=== PATIENT | male | born 1960 | race Caucasian/White ===

== ENCOUNTER 2017-02-11 07:24 | Emergency (ER) | payer OTHER ==
[~2017-02-11] VITALS: Ht 188 cm; Wt 114.0 kg
[~2017-02-11 07:24] MED LIST: CARB200T PO; CETI10TA84 PO; ETHO250C PO; PANT1TAB48 PO
[2017-02-11 07:28] VITALS: TEMP 36.4; Ht 188 cm; Wt 114.0 kg
[2017-02-11] MEDS ORDERED: XYLOCAINE 1%/SOD BICARB 20 ML VIAL INFIL ONE (07:45)
--- NOTE | 2017-02-11 08:11 | DIAGNOSTIC IMAGING REPORT ---
RIGHT FOURTH FINGER 3 VIEWS HISTORY: fourth finger injury Right COMPARISON: None. FINDINGS: Volar dislocation at the PIP joint of the right fourth finger. Tiny ossific density adjacent to the head of the proximal phalanx of the fourth finger consistent with an avulsion fracture. Soft tissue swelling at the PIP joint. No radiopaque foreign bodies. IMPRESSION: Dislocation at the PIP joint of the right fourth finger with a tiny avulsion fracture. Electronically signed by: Peng Stephens M.D. 02/11/2017 8:09 AM Dictated Date/Time: 02/11/2017 8:00 AM
--- NOTE | 2017-02-11 08:19 | DIAGNOSTIC IMAGING REPORT ---
RIGHT FOURTH FINGER 3 VIEWS CLINICAL HISTORY: reduction fourth finger Right COMPARISON STUDY: Right fourth finger 02/11/2017. FINDINGS: Status post reduction of the dislocation at the PIP joint. The alignment is anatomic. Mild soft tissue swelling at the PIP joint. No fractures identified at this time. IMPRESSION: Status post reduction of the dislocation at the PIP joint of the right fourth finger. The alignment is anatomic. Electronically signed by: Peng Stephens M.D. 02/11/2017 8:18 AM Dictated Date/Time: 02/11/2017 8:17 AM
--- NOTE | 2017-02-11 08:30 | EMERGENCY ROOM VISIT NOTE ---
ED Visit Note First contact with patient: 07:31 CHIEF COMPLAINT: Right fourth Finger injury today HISTORY OF PRESENT ILLNESS: This 56-year-old male presents the ER with chief complaint of right fourth finger injury. The patient states that he was walking his dog on a leash this morning and the dog took off after another dog and his fingers got caught in the leash. He states his right fourth finger is now deformed looking. The patient is right-hand dominant. REVIEW OF SYSTEMS: 6 system review was performed and was negative unless stated otherwise in history of present illness. PMH: The patient is healthy; seizure disorder, nose surgery, shoulder surgery, cataract surgery SOCIAL HISTORY: Patient living with his family. The patient denies any tobacco or alcohol use. PHYSICAL EXAM: Vital Signs: Were reviewed Reviewed Nurse's notes.GEN.: 56-year- old white male appears in no acute distress. MENTAL Status: Alert and oriented 3. RIGHT FOURTH FINGER: There is an obvious deformity at the PIP joint of the finger with dorsal dislocation of the middle phalanx. The distal dislocated portion of the finger is pale but is sensate. Capillary refill is normal. EMERGENCY DEPARTMENT COURSE: The patient was evaluated. A digital block was performed using 1% buffered lidocaine. X-ray of the right fourth finger was interpreted by the radiologist and myself. DIAGNOSTICS:RIGHT FOURTH FINGER 3 VIEWS HISTORY: fourth finger injury Right COMPARISON: None. FINDINGS: Volar dislocation at the PIP joint of the right fourth finger. Tiny ossific density adjacent to the head of the proximal phalanx of the fourth finger consistent with an avulsion fracture. Soft tissue swelling at the PIP joint. No radiopaque foreign bodies. IMPRESSION: Dislocation at the PIP joint of the right fourth finger with a tiny avulsion fracture. Electronically signed by: Peng Stephens M.D. 02/11/2017 8:09 AM She was informed of the findings. Using steady traction on the proximal phalanx and middle phalanx was pulled towards the palmar aspect and then distally with complete reduction of the dislocation. A repeat x-ray was performed. DIAGNOSTICS:RIGHT FOURTH FINGER 3 VIEWS CLINICAL HISTORY: reduction fourth finger Right COMPARISON STUDY: Right fourth finger 02/11/2017. FINDINGS: Status post reduction of the dislocation at the PIP joint. The alignment is anatomic. Mild soft tissue swelling at the PIP joint. No fractures identified at this time. IMPRESSION: Status post reduction of the dislocation at the PIP joint of the right fourth finger. The alignment is anatomic. Electronically signed by: Peng Stephens M.D. 02/11/2017 8:18 AM The patient was placed in a long metal finger splint and discharged home in stable condition. DIAGNOSIS: Dislocated PIP joint of the finger DISCHARGE INSTRUCTIONS & TREATMENT: Keep the finger jono in the finger splint for 5 days except for bathing. Ice and elevation for 24 hours. Ibuprofen, 600 mg every 6 hours for pain. Current/Historical Medications Scheduled Carbamazepine (Tegretol), 400 MG PO TID Cetirizine (Zyrtec), 10 MG PO QAM Ethosuximide (Zarontin), 250 MG PO QID Pantoprazole (Protonix), 40 MG PO QAM Allergies Coded Allergies: Grass (Verified Allergy, Unknown, "SEASONAL ALLERGIES", 11/27/15) Cat Dander (Verified Adverse Reaction, Unknown, "PET DANDER", 11/27/15) Erythromycin (Verified Adverse Reaction, Unknown, DRUG INTERACTION, ) Vital Signs Date Time Temp Pulse Resp B/P (MAP) Pulse Ox O2 Delivery O2 Flow Rate FiO2 02/11/17 07:28 36.4 78 16 146/92 95 Room Air Departure Information Referrals No Doctor, Assigned (PCP) Patient Instructions [facility]
[2017-02-11 08:36] VITALS: BP 143/96; PULSE 70; O2SAT 96
== END 2017-02-11 08:37 | disposition home or self-care (01) ==
LOC: C.EDB 07:27 → C.EDA 08:37
DX: S63.274A Dislocation of unspecified interphalangeal joint of right ring finger, initial encounter (principal); X50.9XXA Other and unspecified overexertion or strenuous movements or postures, initial encounter

== ENCOUNTER 2021-04-02 07:59 | Inpatient (IN) ==
[2021-04-02] MEDS ORDERED: OPTIRAY 320 125ml IV ONE (08:17)
--- NOTE | 2021-04-02 08:29 | CT Scan Report ---
CT SCAN OF THE BRAIN WITHOUT IV CONTRAST CLINICAL HISTORY: Strokelike symptoms. COMPARISON STUDY: No priors. TECHNIQUE: Unenhanced axial CT scan of the brain is performed from the vertex to the skull base. A d ose lowering technique was utilized adhering to the principles of ALARA. CT DOSE: 729.78 mGycm FINDINGS: Brain parenchyma: The brain parenchyma is normal in appearance. There is no hemorrhage, mass effect, or evidence of acute territorial ischemia by CT criteria. Howard-white matter differentiation is preser perry. No extra-axial fluid collection is seen. Ventricles, sulci, cisterns: Normal in configuration. Intracranial vasculature: There is atherosclerotic calcification of the cavernous carotid and vertebr al arteries. Calvarium: Unremarkable. Sinuses and mastoids: The paranasal sinuses are clear. The mastoid air cells are well pneumatized. Orbits: The bony orbits are grossly intact. There are bilateral ocular lens implants. IMPRESSION: There is no hemorrhage, mass effect, or evidence of acute territorial ischemia by CT rosana cruz. ACT 112: Negative or not required by law. Electronically signed by: Moises Castellon M.D. 04/02/2021 8:28 AM
[2021-04-02 08:38] LABS: Basophils # (auto) 0.01 K/uL (0-0.2); Basophils % (auto) 0.2 %; Eosinophils # (auto) 0.57 K/uL (0-0.5); Eosinophils % (auto) 10.6 %; Hematocrit (blood only) 39.2 % (42-52); Hemoglobin 13.6 g/dL (14.0-18.0); Immature Granulocytes # (auto) 0.04 K/uL (0.00-0.02); Immature Granulocytes % (auto) 0.7 %; Lymphocytes # (auto) 1.24 K/uL (1.2-3.4); Mean Corpuscular Hemoglobin 29.7 pg (25-34); Mean Corpuscular Hgb Conc 34.7 g/dL (32-36); Mean Corpuscular Volume 85.6 fL (80-100); Mean Platelet Volume 9.2 fL (7.4-10.4); Monocytes # (auto) 0.56 K/uL (0.11-0.59); Monocytes % (auto) 10.4 %; Neutrophils # (auto) 2.98 K/uL (1.4-6.5); Neutrophils % (auto) 55.1 %; Platelet Count 257 K/uL (130-400); RDW Coefficient of Variation 13.1 % (11.5-14.5); RDW Standard Deviation 40.9 fL (36.4-46.3); Red Blood Count 4.58 M/uL (4.7-6.1)
--- NOTE | 2021-04-02 08:43 | Emergency Department Note ---
History of Present Illness General Chief complaint: Stroke/CVA Symptoms Stated complaint: LOST MOTOR CONTROL ON R SIDE Time Seen by Provider: 04/02/21 08:13 History of Present Illness Provider complaint: Right-sided weakness Onset (ago): hour(s) (0630 AM when he awoke) Location: upper extremity and right Maximum Pain Intensity: 0 Current Pain Intensity: 0 Associated symptoms: + weakness; no chest pain, no cough, no fever/chills, no headaches, no nausea/vomiting or no shortness of breath 60-year-old male presents emergency department for right-sided weakness. Pat rodrick states he woke up at 6:30 AM and felt like his right side was weak. Patient states he went to bed at 1:00 AM. The patient reports that his symptoms were present when he woke up. Patient reports no headache. No fevers. The at bedside reports that the patient's speech was slurred however that has resolved. No chest pain or difficulty breathing. Home Medications Medication Instructions Recorded Confirmed Type carbamazepine 100 mg chewable 100 mg PO HS 04/02/21 04/02/21 History tablet carbamazepine 200 mg tablet 400 mg PO TID 04/02/21 04/02/21 History cetirizine 10 mg tablet 10 mg PO QAM 04/02/21 04/02/21 History ethosuximide 250 mg capsule 250 mg PO UD 04/02/21 04/02/21 History multivitamin 1 tab PO QAM 04/02/21 04/02/21 History pantoprazole 40 mg tablet,delayed 40 mg PO DAILY@1700 04/02/21 04/02/21 History release Allergies Allergy/AdvReac Type Severity Reaction Status Date / Time grass pollen-perennial rye, Allergy Unknown "SEASONAL Verified 04/02/21 09:23 standar ALLERGIES" cat dander AdvReac Unknown "PET Verified 04/02/21 09:23 DANDER" erythromycin base AdvReac Unknown DRUG Verified 04/02/21 09:23 INTERACTION Past Med/Surg History Medical History (Updated 04/02/21 @ 15:33 by Kavon Erickson) GERD (gastroesophageal reflux disease) Seizure disorder Surgical History History of arthroscopic surgery of shoulder Family History Other Stroke Social History Smoking Status: Never smoker Hx Alcohol Use: Yes Alcohol Intake Frequency: Monthly or Less Hx Substance Use: No Preferred Language: Latvian Communication Ability: Effective Women Specialist Required: No Beliefs That Will Affect Care: None Current Living Situation: Spouse Other Information That Helps Us Care for You: No Feels Safe at Home: Yes Safety Concerns: Feels Safe At This Time Assistive Devices: None Review of Systems A total of 10 systems reviewed and were otherwise negative Physical Exam Vital Signs Vital Signs - 24 hr 04/02/21 08:03 04/02/21 08:14 04/02/21 08:30 Temperature 36.5 C Temperature Source Temporal Artery Scan Pulse Rate 76 72 Pulse Rate [Finger] 77 Pulse Rate from SpO2 Sensor 73 Respiratory Rate 16 16 21 Respiratory Effort / Characteristics Non-Labored Spontaneous Respiratory Depth Normal Respiratory Pattern Regular Blood Pressure 173/85 H 179/90 H Blood Pressure [Right Arm] 179/90 H Blood Pressure Mean 114 119 Blood Pressure Mean [Right Arm] 119 Blood Pressure Position Sitting Pulse Oximetry 94 97 96 Oxygen Delivery Method Room Air Room Air Sepsis Recent Fever Within 48 Hours No Sepsis New/Unexplained Change in Mental Status N/A Sepsis Action Taken by Nursing No Action Required 04/02/21 09:01 04/02/21 09:30 04/02/21 10:00 Temperature Temperature Source Pulse Rate 65 61 62 Pulse Rate [Finger] Pulse Rate from SpO2 Sensor 66 61 62 Respiratory Rate 16 17 16 Respiratory Effort / Characteristics Respiratory Depth Respiratory Pattern Blood Pressure 174/94 H 172/93 H 161/85 H Blood Pressure [Right Arm] Blood Pressure Mean 120 119 110 Blood Pressure Mean [Right Arm] Blood Pressure Position Pulse Oximetry 94 95 96 Oxygen Delivery Method Sepsis Recent Fever Within 48 Hours Sepsis New/Unexplained Change in Mental Status Sepsis Action Taken by Nursing Physical Exam GENERAL: He is oriented to person, place, and time. He appears well-developed and well-nourished. He does not appear distressed. HENT: Exam performed. - Head: Normocephalic and atraumatic. - Right Ear: External ear normal. No mastoid tenderness. - Left Ear: External ear normal. No mastoid tenderness. - Mouth/Throat: The oropharynx is clear and moist. No trismus in the jaw. No dental abscesses or uvula swelling. No oropharyngeal exudate or tonsillar abscesses. EYES: Conjunctivae and EOM are normal. Pupils are equal, round, and reactive to light. Right eye exhibits no discharge. Left eye exhibits no discharge. No scleral icterus. NECK: Normal range of motion. Neck supple. No JVD present. No spinous process tenderness present. No carotid bruit present. No rigidity. No tracheal deviation and normal range of motion present. No Brudzinski's sign and no Kernig's sign noted. CV: Normal rate, regular rhythm, normal heart sounds and intact distal pulses. There is no peripheral edema. Palpable radial pulses bue. PULM/CHEST: Effort normal and breath sounds normal. No respiratory distress. No stridor. He has no wheezes. He has no rales. - Chest Wall: He exhibits no tenderness. ABD: The abdomen is soft. Bowel sounds are normal. He has no distension. No mass is present. There is no tenderness. There is no rebound, no guarding, no Al's sign and no tenderness at McBurney's point. Rovsig negative. MUSC/SKEL: Normal range of motion. There is no peripheral edema, tenderness or deformity. LYMPH: No cervical adenopathy. NEURO: He is alert and oriented to person, place, and time. He has normal strength. No cranial nerve deficit or sensory deficit. Coordination and gait normal. GCS eye subscore is 4. GCS verbal subscore is 5. GCS motor subscore is 6. Cerebellar tests wnl. NIHSS: 0 SKIN: Skin is warm and dry. He is not diaphoretic. PSYCH: He has a normal mood and affect. Behavior is normal. Judgment and thought content normal. Course Course 08: The patient was evaluated in room A1. A complete history and physical exam was performed Cardiac monitoring: An order was placed for continuous cardiac monitoring. The monitor shows a rate of 80 with sinus rhythm Patient is not a TPA candidate since he woke up with his symptoms and is not sure the exact onset of symptoms. Patient's NIH stroke scale is currently 0. 0905: Vital signs stable. Labs and imaging are within normal limits. Patient has NIH stroke scale 0. Will admit the patient to the [facility] team for TIA. Aspirin given to the patient. Discussed with Dr. Lucio agrees to evaluate the patient. Administered Medications Clopidogrel Bisulfate (Clopidogrel Bisulfate 75 Mg Tab) 75 mg PO QAM [facility] Stop: 05/02/21 13:44 Last Admin: 04/02/21 14:56 Dose: 75 mg Documented by: [id number] Discontinued Medications Aspirin (Aspirin Chew 324 Mg) 324 mg PO NOW STA Stop: 04/02/21 09:07 Last Admin: 04/02/21 09:13 Dose: 324 mg Documented by: [id number] Gadobutrol (Gadobutrol 30ml Vial) 11 ml IV ONCE ONE Stop: 04/02/21 12:31 Last Admin: 04/02/21 12:31 Dose: 11 ml Documented by: [id number] Ioversol (Optiray 320 125ml) 117 ml IV ONCE ONE Stop: 04/02/21 08:18 Last Admin: 04/02/21 08:17 Dose: 117 ml Documented by: [id number] Medical Decision Making Laboratory Data Result diagrams: 04/02/21 08:28 04/02/21 08:28 Lab Results 04/02/21 04/02/21 04/02/21 Range/Units 08:28 08:28 08:28 WBC 5.40 (4.8-10.8) K/uL RBC 4.58 L (4.7-6.1) M/uL Hgb 13.6 L (14.0-18.0) g/dL Hct 39.2 L (42-52) % MCV 85.6 (80-100) fL MCH 29.7 (25-34) pg MCHC 34.7 (32-36) g/dL RDW Std Deviation 40.9 (36.4-46.3) fL RDW Coeff of Yvon 13.1 (11.5-14.5) % Plt Count 257 (130-400) K/uL MPV 9.2 (7.4-10.4) fL Immature Gran % (Auto) 0.7 % Neut % (Auto) 55.1 % Lymph % (Auto) 23.0 % [place] % (Auto) 10.4 % Eos % (Auto) 10.6 % Baso % (Auto) 0.2 % Neut # (Auto) 2.98 (1.4-6.5) K/uL Lymph # (Auto) 1.24 (1.2-3.4) K/uL [place] # (Auto) 0.56 (0.11-0.59) K/uL Eos # (Auto) 0.57 H (0-0.5) K/uL Baso # (Auto) 0.01 (0-0.2) K/uL Immature Gran # (Auto) 0.04 H (0.00-0.02) K/uL PT 10.6 (9.0-12.0) Seconds INR 1.0 (0.9-1.1) APTT 25.6 (21.0-31.0) Seconds PTT Ratio 1.0 Sodium (136-145) mmol/L Potassium (3.5-5.1) mmol/L Chloride (98-107) mmol/L Carbon Dioxide (21-32) mmol/L Anion Gap (3-11) BUN (7-18) mg/dl Creatinine (0.6-1.4) mg/dl Est Cr Clr Drug Dosing ml/min Est GFR ( Amer) ml/min Est GFR (Non-Af Amer) ml/min BUN/Creatinine Ratio (10-20) Glucose (70-99) mg/dl POC Glucose (70-99) mg/dl Calcium (8.5-10.1) mg/dl Magnesium (1.8-2.4) mg/dl Total Bilirubin (0.2-1) mg/dl AST (15-37) U/L ALT (12-78) U/L Alkaline Phosphatase (45-117) U/L Troponin I (0-0.045) ng/ml Total Protein (6.4-8.2) gm/dl Albumin (3.4-5.0) gm/dl Globulin (2.5-4.0) gm/dl Albumin/Globulin Ratio (0.9-2) COVID-19 Eval Order SARS-CoV-2 (PCR) (Negative) Blood Type A Positive Antibody Screen NEGATIVE 04/02/21 04/02/21 04/02/21 Range/Units 08:28 08:31 08:48 WBC (4.8-10.8) K/uL RBC (4.7-6.1) M/uL Hgb (14.0-18.0) g/dL Hct (42-52) % MCV (80-100) fL MCH (25-34) pg MCHC (32-36) g/dL RDW Std Deviation (36.4-46.3) fL RDW Coeff of Yvon (11.5-14.5) % Plt Count (130-400) K/uL MPV (7.4-10.4) fL Immature Gran % (Auto) % Neut % (Auto) % Lymph % (Auto) % [place] % (Auto) % Eos % (Auto) % Baso % (Auto) % Neut # (Auto) (1.4-6.5) K/uL Lymph # (Auto) (1.2-3.4) K/uL [place] # (Auto) (0.11-0.59) K/uL Eos # (Auto) (0-0.5) K/uL Baso # (Auto) (0-0.2) K/uL Immature Gran # (Auto) (0.00-0.02) K/uL PT (9.0-12.0) Seconds INR (0.9-1.1) APTT (21.0-31.0) Seconds PTT Ratio Sodium 135 L (136-145) mmol/L Potassium 4.2 (3.5-5.1) mmol/L Chloride 106 (98-107) mmol/L Carbon Dioxide 26 (21-32) mmol/L Anion Gap 3.0 (3-11) BUN 16 (7-18) mg/dl Creatinine 0.75 (0.6-1.4) mg/dl Est Cr Clr Drug Dosing 137.5 ml/min Est GFR ( Amer) 113.9 ml/min Est GFR (Non-Af Amer) 98.3 ml/min BUN/Creatinine Ratio 20.6 H (10-20) Glucose 111 H (70-99) mg/dl POC Glucose 104 H (70-99) mg/dl Calcium 8.3 L (8.5-10.1) mg/dl Magnesium 2.2 (1.8-2.4) mg/dl Total Bilirubin 0.4 (0.2-1) mg/dl AST 13 L (15-37) U/L ALT 25 (12-78) U/L Alkaline Phosphatase 68 (45-117) U/L Troponin I < 0.015 (0-0.045) ng/ml Total Protein 6.5 (6.4-8.2) gm/dl Albumin 3.3 L (3.4-5.0) gm/dl Globulin 3.2 (2.5-4.0) gm/dl Albumin/Globulin Ratio 1.0 (0.9-2) COVID-19 Eval Order Covid19 at [facility] SARS-CoV-2 (PCR) (Negative) Blood Type Antibody Screen 04/02/21 Range/Units 08:48 WBC (4.8-10.8) K/uL RBC (4.7-6.1) M/uL Hgb (14.0-18.0) g/dL Hct (42-52) % MCV (80-100) fL MCH (25-34) pg MCHC (32-36) g/dL RDW Std Deviation (36.4-46.3) fL RDW Coeff of Yvon (11.5-14.5) % Plt Count (130-400) K/uL MPV (7.4-10.4) fL Immature Gran % (Auto) % Neut % (Auto) % Lymph % (Auto) % [place] % (Auto) % Eos % (Auto) % Baso % (Auto) % Neut # (Auto) (1.4-6.5) K/uL Lymph # (Auto) (1.2-3.4) K/uL [place] # (Auto) (0.11-0.59) K/uL Eos # (Auto) (0-0.5) K/uL Baso # (Auto) (0-0.2) K/uL Immature Gran # (Auto) (0.00-0.02) K/uL PT (9.0-12.0) Seconds INR (0.9-1.1) APTT (21.0-31.0) Seconds PTT Ratio Sodium (136-145) mmol/L Potassium (3.5-5.1) mmol/L Chloride (98-107) mmol/L Carbon Dioxide (21-32) mmol/L Anion Gap (3-11) BUN (7-18) mg/dl Creatinine (0.6-1.4) mg/dl Est Cr Clr Drug Dosing ml/min Est GFR ( Amer) ml/min Est GFR (Non-Af Amer) ml/min BUN/Creatinine Ratio (10-20) Glucose (70-99) mg/dl POC Glucose (70-99) mg/dl Calcium (8.5-10.1) mg/dl Magnesium (1.8-2.4) mg/dl Total Bilirubin (0.2-1) mg/dl AST (15-37) U/L ALT (12-78) U/L Alkaline Phosphatase (45-117) U/L Troponin I (0-0.045) ng/ml Total Protein (6.4-8.2) gm/dl Albumin (3.4-5.0) gm/dl Globulin (2.5-4.0) gm/dl Albumin/Globulin Ratio (0.9-2) COVID-19 Eval Order SARS-CoV-2 (PCR) NEGATIVE (Negative) Blood Type Antibody Screen Imaging Data Radiologist's Impression: Head CT 04/02/21 08:13 CT SCAN OF THE BRAIN WITHOUT IV CONTRAST CLINICAL HISTORY: Strokelike symptoms. COMPARISON STUDY: No priors. TECHNIQUE: Unenhanced axial CT scan of the brain is performed from the vertex to the skull base. A dose lowering technique was utilized adhering to the principles of ALARA. CT DOSE: 729.78 mGycm FINDINGS: Brain parenchyma: The brain parenchyma is normal in appearance. There is no hemorrhage, mass effect, or evidence of acute territorial ischemia by CT criteria. Howard-white matter differentiation is preserved. No extra-axial fluid collection is seen. Ventricles, sulci, cisterns: Normal in configuration. Intracranial vasculature: There is atherosclerotic calcification of the cavernous carotid and vertebral arteries. Calvarium: Unremarkable. Sinuses and mastoids: The paranasal sinuses are clear. The mastoid air cells are well pneumatized. Orbits: The bony orbits are grossly intact. There are bilateral ocular lens implants. IMPRESSION: There is no hemorrhage, mass effect, or evidence of acute territorial ischemia by CT criteria. ACT 112: Negative or not required by law. Electronically signed by: Moises Castellon M.D. 04/02/2021 8:28 AM Head CTA 04/02/21 08:13 CT angio head w con, CT angio neck with con CLINICAL HISTORY: 60 years-old Male with Stroke Like Symptoms. Acute strokelike symptoms COMPARISON STUDY: Head CT of same day TECHNIQUE: Following the IV administration of 117 cc of Optiray, CT angiogram of the head and neck was performed from the aortic arch to the skull vertex. Images are reviewed in the axial, sagittal, and coronal planes. 3-D MIPS images are created and assessed. IV contrast was administered without complication. All measurements were obtained according to NASCET criteria. A dose lowering technique was utilized adhering to the principles of ALARA. CT DOSE: 1284.54 mGycm FINDINGS: Three-vessel morphology of the thoracic aortic arch. Patency of the innominate and imaged subclavian arteries. The common carotid arteries are patent. Mild atherosclerotic plaque of the carotid bulbs without significant stenosis. Calcified plaque of the cavernous and supraclinoid segments. Mild multifocal luminal narrowing of the middle cerebral arteries. The anterior cerebral arteries are patent. Cerebral venous sinuses are patent. Patency of the vertebral arteries. Calcified plaque at the origin of the right vertebral artery results in mild luminal narrowing. The basilar and posterior cerebral arteries are widely patent. No aneurysm, dissection, high-grade stenosis or arterial occlusion. Lung apices are clear. No pneumothorax. Unremarkable soft tissues. Prior bilateral lens repair. Degenerative changes of the spine. Mild polypoid mucosal thickening of the right maxillary sinus. IMPRESSION: Unremarkable CTA of the head and neck. ACT 112: Negative or not required by law. The above report was generated using voice recognition software. It may contain grammatical, syntax or spelling errors. Electronically signed by: Bhupendra Mackay M.D. 04/02/2021 8:53 AM Neck CTA 04/02/21 08:13 CT angio head w con, CT angio neck with con CLINICAL HISTORY: 60 years-old Male with Stroke Like Symptoms. Acute strokelike symptoms COMPARISON STUDY: Head CT of same day TECHNIQUE: Following the IV administration of 117 cc of Optiray, CT angiogram of the head and neck was performed from the aortic arch to the skull vertex. Images are reviewed in the axial, sagittal, and coronal planes. 3-D MIPS images are created and assessed. IV contrast was administered without complication. All measurements were obtained according to NASCET criteria. A dose lowering technique was utilized adhering to the principles of ALARA. CT DOSE: 1284.54 mGycm FINDINGS: Three-vessel morphology of the thoracic aortic arch. Patency of the innominate and imaged subclavian arteries. The common carotid arteries are patent. Mild atherosclerotic plaque of the carotid bulbs without significant stenosis. Calcified plaque of the cavernous and supraclinoid segments. Mild multifocal luminal narrowing of the middle cerebral arteries. The anterior cerebral arteries are patent. Cerebral venous sinuses are patent. Patency of the vertebral arteries. Calcified plaque at the origin of the right vertebral artery results in mild luminal narrowing. The basilar and posterior cerebral arteries are widely patent. No aneurysm, dissection, high-grade stenosis or arterial occlusion. Lung apices are clear. No pneumothorax. Unremarkable soft tissues. Prior bilateral lens repair. Degenerative changes of the spine. Mild polypoid mucosal thickening of the right maxillary sinus. IMPRESSION: Unremarkable CTA of the head and neck. ACT 112: Negative or not required by law. The above report was generated using voice recognition software. It may contain grammatical, syntax or spelling errors. Electronically signed by: Bhupendra Mackay M.D. 04/02/2021 8:53 AM ECG Data Indication: + weakness Rate (beats per minute): 72 Rhythm: + normal sinus ECG Intervals/blocks: + Normal QRS, + Normal MI and + Normal QT-c ECG ST segments: + Normal ST segments [facility] Narrative 0813: The patient was evaluated in room A1. A complete history and physical exam was performed Cardiac monitoring: An order was placed for continuous cardiac monitoring. The monitor shows a rate of 80 with sinus rhythm Patient is not a TPA candidate since he woke up with his symptoms and is not sure the exact onset of symptoms. Patient's NIH stroke scale is currently 0. 0905: Vital signs stable. Labs and imaging are within normal limits. Patient has NIH stroke scale 0. [facility] Aspirin given to the patient. Discussed with Dr. Lucio agrees to evaluate the patient. Impression & Plan TIA (transient ischemic attack) Discharge Plan Visit Data Chief Complaint: Stroke/CVA Symptoms Stated Complaint: LOST MOTOR CONTROL ON R SIDE ED Provider: Kavon Erickson Discharge Problem: TIA (transient ischemic attack) Patient Disposition: Admitted As Inpatient Discharge Instructions Interventions: ED Discharge Assessment Last Done: 04/02/21 10:40
[2021-04-02 08:51] LABS: Partial Thromboplastin Time 25.6 Seconds (21.0-31.0); Prothrombin Time 10.6 Seconds (9.0-12.0)
[2021-04-02 08:55] LABS: Albumin Level 3.3 gm/dl (3.4-5.0); Aspartate Aminotransferase 13 U/L (15-37); BUN Creatinine Ratio 20.6 (10-20); Blood Urea Nitrogen 16 mg/dl (7-18); Calcium 8.3 mg/dl (8.5-10.1); Carbon Dioxide 26 mmol/L (21-32); Chloride 106 mmol/L (98-107); Creatinine Clr Calc Pharmacy 137.5 ml/min; Est GFR (African American) 113.9 ml/min; Est GFR (Non-African American) 98.3 ml/min; Glucose 111 mg/dl (70-99); Magnesium 2.2 mg/dl (1.8-2.4); Potassium 4.2 mmol/L (3.5-5.1); Sodium 135 mmol/L (136-145)
--- NOTE | 2021-04-02 08:55 | CT Scan Report ---
CT angio head w con, CT angio neck with con CLINICAL HISTORY: 60 years-old Male with Stroke Like Symptoms. Acute strokelike symptoms COMPARISON STUDY: Head CT of same day TECHNIQUE: Following the IV administration of 117 cc of Optiray, CT angiogram of the head and neck wa s performed from the aortic arch to the skull vertex. Images are reviewed in the axial, sagittal, and coronal planes. 3-D MIPS images are created and assessed. IV contrast was administered without compl ication. All measurements were obtained according to NASCET criteria. A dose lowering technique was u tilized adhering to the principles of ALARA. CT DOSE: 1284.54 mGycm FINDINGS: Three-vessel morphology of the thoracic aortic arch. Patency of the innominate and imaged subclavian arteries. The common carotid arteries are patent. Mild atherosclerotic plaque of the carotid bulbs wi thout significant stenosis. Calcified plaque of the cavernous and supraclinoid segments. Mild multifo denae luminal narrowing of the middle cerebral arteries. The anterior cerebral arteries are patent. Cer ebral venous sinuses are patent. Patency of the vertebral arteries. Calcified plaque at the origin of the right vertebral artery results in mild luminal narrowing. The basilar and posterior cerebral art eries are widely patent. No aneurysm, dissection, high-grade stenosis or arterial occlusion. Lung apices are clear. No pneumothorax. Unremarkable soft tissues. Prior bilateral lens repair. Degen erative changes of the spine. Mild polypoid mucosal thickening of the right maxillary sinus. IMPRESSION: Unremarkable CTA of the head and neck. ACT 112: Negative or not required by law. The above report was generated using voice recognition software. It may contain grammatical, syntax o r spelling errors. Electronically signed by: Bhupendra Mackay M.D. 04/02/2021 8:53 AM
[2021-04-02 09:00] LABS: Alanine Aminotransferase 25 U/L (12-78); Alkaline Phosphatase 68 U/L (45-117); Bilirubin,Total 0.4 mg/dl (0.2-1); Globulin 3.2 gm/dl (2.5-4.0); Total Protein 6.5 gm/dl (6.4-8.2); Troponin I < 0.015 ng/ml (0-0.045)
[2021-04-02] MEDS ORDERED: ASPIRIN CHEW 324 MG PO STA (09:06)
--- NOTE | 2021-04-02 10:07 | History & Physical Report ---
Date of Service April 02, 2021 Assessment & Plan (1) Stroke-like symptoms: Plan: This is a 60-year-old male with PMH of seizure disorder who presents with strokelike symptoms since morning. Symptoms resolving. Still with subjective R sided weakness, mild R facial droop CT head-without acute intracranial abnormality CTA head/neck-unremarkable MRI brain w/wo, echo w/ bubble study pending Given 324mg aspirin in ER A1c, fasting lipid panel pending for AM Neuro checks, PT, OT, speech therapy evaluations Routine neurology consult BP elevated at 175/95 - no h/o HTN. Allow for permissive HTN for 24h in setting of possible ischemic event (2) Seizure disorder: Plan: Remote h/o seizures, over 10 years ago Continue home carbamazepine, ethosuximide Took AM doses prior to arrival (3) GERD (gastroesophageal reflux disease): Plan: Continue protonix DVT Ppx: SQ Lovenox Code status: FULL PCP: Cristina Dispo: Admitted to PCU. Discharge planning ordered per stroke eval protocol. Patient seen in collaboration with Dr. Andrews. Please see addendum. History of Present Illness Chief Complaint: stroke like sx Primary Care Provider: NO PCP This is a 60-year-old male with PMH of seizure disorder who presents with strokelike symptoms since morning. Patient was in normal state of health last evening when he went to bed but woke up around 0630 with right-sided weakness. also notes slowed speech that is since improved. Denies any swallowing issues. Able to ambulate but feels weak and unstable on right side. Denies any personal history of strokelike symptoms. + Family history of stroke with father. Denies any fever, chills, congestion. No lightheadedness, headache, visual changes, chest pain, shortness of breath. No nausea, vomiting or abdominal pain. No dysuria, diarrhea constipation. Allergies Allergy/AdvReac Type Severity Reaction Status Date / Time grass pollen-perennial rye, Allergy Unknown "SEASONAL Verified 04/02/21 09:23 standar ALLERGIES" cat dander AdvReac Unknown "PET Verified 04/02/21 09:23 DANDER" erythromycin base AdvReac Unknown DRUG Verified 04/02/21 09:23 INTERACTION Home Medications Medication Instructions Recorded Confirmed Type carbamazepine 100 mg chewable 100 mg PO HS 04/02/21 04/02/21 History tablet carbamazepine 200 mg tablet 400 mg PO TID 04/02/21 04/02/21 History cetirizine 10 mg tablet 10 mg PO QAM 04/02/21 04/02/21 History ethosuximide 250 mg capsule 250 mg PO UD 04/02/21 04/02/21 History multivitamin 1 tab PO QAM 04/02/21 04/02/21 History pantoprazole 40 mg tablet,delayed 40 mg PO DAILY@1700 04/02/21 04/02/21 History release aspirin 81 mg tablet,delayed 81 mg PO QAM #30 tab 04/04/21 Rx release atorvastatin 40 mg tablet 40 mg PO QAM #30 tab 04/04/21 Rx clopidogrel 75 mg tablet 75 mg PO QAM #30 tab 04/04/21 Rx Past Med/Surg History Surgical History History of arthroscopic surgery of shoulder Family History Other Stroke Social History Smoking Status: Never smoker Hx Alcohol Use: Yes Alcohol Intake Frequency: Monthly or Less Hx Substance Use: No Preferred Language: Bolivian Communication Ability: Effective Commercial Subcontractor Required: No Beliefs That Will Affect Care: None marital status: Current Living Situation: Spouse How many Children do You have: 4 Other Information That Helps Us Care for You: No Feels Safe at Home: Yes Safety Concerns: Feels Safe At This Time Assistive Devices: None Review of Systems Review of Systems: At least ten systems reviewed and negative except as noted in the HPI. Physical Exam Physical Exam: General Appearance: WD/WN, vitals as above, NAD, sitting up in bed, pleasant, conversing easily Head: normocephalic, atraumatic Eyes: normal inspection, PERRL, conjunctivae normal, anicteric sclerae ENT: external ear and nose normal, oropharynx normal Neck: normal visual inspection, trachea midline, no thyromegaly Respiratory: normal respiratory effort, lungs clear to auscultation, no wheeze, rales, rhonchi. No accessory muscle use Cardiovascular: regular rate, rhythm, no murmur, normal peripheral pulses, no BLE edema. Vessels: no JVD Chest: normal inspection of chest Abdomen/GI: normal bowel sounds, soft, nontender, no hepatosplenomegaly Extremities/Musculoskeletal: no cyanosis or clubbing, extremities motor strength 5/5 Neurologic: PERRL, EOMI, accommodation nl, + slight R facial droop ,no dysarthria, CN's II-XI intact bilaterally and moves all extremities Psychiatric: A+Ox3, euthymic affect Skin: no rashes, normal color, warm/dry Results & Data Results & Data ([facility]) Vital Signs (Past 12 Hours) Vital Signs Temp Pulse Pulse Resp BP BP Pulse Ox 04/02/21 09:30 61 17 172/93 H 95 04/02/21 09:01 65 16 174/94 H 94 04/02/21 08:30 72 21 179/90 H 96 04/02/21 08:14 77 16 179/90 H 97 04/02/21 08:03 36.5 C 76 16 173/85 H 94 Laboratory Results Short CBC 04/02/21 Range/Units 08:28 WBC 5.40 (4.8-10.8) K/uL Hgb 13.6 L (14.0-18.0) g/dL Hct 39.2 L (42-52) % Plt Count 257 (130-400) K/uL BMP 04/02/21 08:28 Sodium 135 L Potassium 4.2 Chloride 106 Carbon Dioxide 26 BUN 16 Creatinine 0.75 Glucose 111 H Calcium 8.3 L Cardiac Enzymes 04/02/21 Range/Units 08:28 Troponin I < 0.015 (0-0.045) ng/ml Liver Function 04/02/21 Range/Units 08:28 Total Bilirubin 0.4 (0.2-1) mg/dl AST 13 L (15-37) U/L ALT 25 (12-78) U/L Alkaline Phosphatase 68 (45-117) U/L Albumin 3.3 L (3.4-5.0) gm/dl Diagnostic Findings Head CT 04/02/21 08:13 CT SCAN OF THE BRAIN WITHOUT IV CONTRAST CLINICAL HISTORY: Strokelike symptoms. COMPARISON STUDY: No priors. TECHNIQUE: Unenhanced axial CT scan of the brain is performed from the vertex to the skull base. A dose lowering technique was utilized adhering to the principles of ALARA. CT DOSE: 729.78 mGycm FINDINGS: Brain parenchyma: The brain parenchyma is normal in appearance. There is no hemorrhage, mass effect, or evidence of acute territorial ischemia by CT criteria. Howard-white matter differentiation is preserved. No extra-axial fluid collection is seen. Ventricles, sulci, cisterns: Normal in configuration. Intracranial vasculature: There is atherosclerotic calcification of the cavernous carotid and vertebral arteries. Calvarium: Unremarkable. Sinuses and mastoids: The paranasal sinuses are clear. The mastoid air cells are well pneumatized. Orbits: The bony orbits are grossly intact. There are bilateral ocular lens implants. IMPRESSION: There is no hemorrhage, mass effect, or evidence of acute territorial ischemia by CT criteria. ACT 112: Negative or not required by law. Electronically signed by: Moises Castellon M.D. 04/02/2021 8:28 AM Head CTA 04/02/21 08:13 CT angio head w con, CT angio neck with con CLINICAL HISTORY: 60 years-old Male with Stroke Like Symptoms. Acute strokelike symptoms COMPARISON STUDY: Head CT of same day TECHNIQUE: Following the IV administration of 117 cc of Optiray, CT angiogram of the head and neck was performed from the aortic arch to the skull vertex. Images are reviewed in the axial, sagittal, and coronal planes. 3-D MIPS images are created and assessed. IV contrast was administered without complication. All measurements were obtained according to NASCET criteria. A dose lowering technique was utilized adhering to the principles of ALARA. CT DOSE: 1284.54 mGycm FINDINGS: Three-vessel morphology of the thoracic aortic arch. Patency of the innominate and imaged subclavian arteries. The common carotid arteries are patent. Mild atherosclerotic plaque of the carotid bulbs without significant stenosis. Calcified plaque of the cavernous and supraclinoid segments. Mild multifocal luminal narrowing of the middle cerebral arteries. The anterior cerebral arteries are patent. Cerebral venous sinuses are patent. Patency of the vertebral arteries. Calcified plaque at the origin of the right vertebral artery results in mild luminal narrowing. The basilar and posterior cerebral arteries are widely patent. No aneurysm, dissection, high-grade stenosis or arterial occlusion. Lung apices are clear. No pneumothorax. Unremarkable soft tissues. Prior bilateral lens repair. Degenerative changes of the spine. Mild polypoid mucosal thickening of the right maxillary sinus. IMPRESSION: Unremarkable CTA of the head and neck. ACT 112: Negative or not required by law. The above report was generated using voice recognition software. It may contain grammatical, syntax or spelling errors. Electronically signed by: Bhupendra Mackay M.D. 04/02/2021 8:53 AM Neck CTA 04/02/21 08:13 CT angio head w con, CT angio neck with con CLINICAL HISTORY: 60 years-old Male with Stroke Like Symptoms. Acute strokelike symptoms COMPARISON STUDY: Head CT of same day TECHNIQUE: Following the IV administration of 117 cc of Optiray, CT angiogram of the head and neck was performed from the aortic arch to the skull vertex. Images are reviewed in the axial, sagittal, and coronal planes. 3-D MIPS images are created and assessed. IV contrast was administered without complication. All measurements were obtained according to NASCET criteria. A dose lowering technique was utilized adhering to the principles of ALARA. CT DOSE: 1284.54 mGycm FINDINGS: Three-vessel morphology of the thoracic aortic arch. Patency of the innominate and imaged subclavian arteries. The common carotid arteries are patent. Mild atherosclerotic plaque of the carotid bulbs without significant stenosis. Calcified plaque of the cavernous and supraclinoid segments. Mild multifocal luminal narrowing of the middle cerebral arteries. The anterior cerebral arteries are patent. Cerebral venous sinuses are patent. Patency of the vertebral arteries. Calcified plaque at the origin of the right vertebral artery results in mild luminal narrowing. The basilar and posterior cerebral arteries are widely patent. No aneurysm, dissection, high-grade stenosis or arterial occlusion. Lung apices are clear. No pneumothorax. Unremarkable soft tissues. Prior bilateral lens repair. Degenerative changes of the spine. Mild polypoid mucosal thickening of the right maxillary sinus. IMPRESSION: Unremarkable CTA of the head and neck. ACT 112: Negative or not required by law. The above report was generated using voice recognition software. It may contain grammatical, syntax or spelling errors. Electronically signed by: Bhupendra Mackay M.D. 04/02/2021 8:53 AM Supervising Physician Co-Signing Physician Notes Pt was seen and examined. Agreed with Jael BEE exam, assessment and plan. 60-year-old male with PMH of seizure disorder who presents with strokelike symptoms. Pt said that t woke up around 0630 with right-sided weakness. also notes slowed speech that is since improved. He was feeling weak and gait was unsteady. Denies any fever, chills, congestion. No lightheadedness, headache, visual changes, chest pain, shortness of breath. No nausea, vomiting or abdominal pain. No dysuria, diarrhea constipation. CT head on admission showed no hemorrhage, mass effect, or evidence of acute territorial ischemia. CTA head and neck was unremarkable. Received IV aspirin 324mg in the ER. Will get MRI brain and ECHO. Will check Lipid panel and A1C. PT/OT/Speech eval. Fall precaution. Will start on Aspirin. Will allow permissive HTN. Will monitor closely for seizure. Will consult neuro. Will monitor closely in telemetry. MD Juliana
[2021-04-02] MEDS ORDERED: PHARMACIST DISCHARGE MED REC CONSULT PRN (11:29)
--- NOTE | 2021-04-02 12:16 | Electrocardiogram Report ---
Test Reason : Blood Pressure : / mmHG Vent. Rate : 072 BPM Atrial Rate : 072 BPM P-R Int : 164 ms QRS Dur : 096 ms QT Int : 382 ms P-R-T Axes : 039 -32 036 degrees QTc Int : 418 ms Normal sinus rhythm Left axis deviation Abnormal ECG When compared with ECG of 16-MAY-2012 12:14, No significant change was found Confirmed by Jose Fonseca ([id number]) on 04/02/2021 12:15:50 PM Referred By: REFERRED SELF Confirmed By:Jose Fonseca
[2021-04-02] MEDS ORDERED: GADOBUTROL 30ML VIAL IV ONE (12:30)
[2021-04-02] MEDS ORDERED: Nursing to Pharmacy Communication SCH (12:30)
--- NOTE | 2021-04-02 13:23 | Magnetic Resonance Report ---
MR brain wo/w con HISTORY: 60 years-old Male stroke eval acute strokelike symptoms COMPARISON: Head CT, CTA head and neck studies of same day TECHNIQUE: Multiple planar multisequence MRI of the brain was obtained both with and without the use of 11.0 mL Gadavist FINDINGS: There is an 11 mm focus of restricted diffusion involving the periventricular left frontal lobe on im age 15 series 4 with decreased signal on ADC map. No acute hemorrhage, territorial infarct, midline s hift, abnormal extra-axial fluid collection, hydrocephalus or intracranial mass. There is no patholog ic blooming artifact. Bilateral mesial temporal lobes are symmetric and appear normal. Age-related in volutional changes. Mild patchy white matter T2/FLAIR hyperintensities suggestive of chronic microvas cular ischemic disease. No abnormal intra-axial or extra-axial enhancement. Cerebral venous sinuses and major arterial flow voids are patent. Mastoid air cells are clear. Mild p olypoid mucosal thickening of the right maxillary sinus. Prior bilateral lens repair. The skull and s oft tissues are within normal limits. IMPRESSION: 1. Small acute lacunar infarct of the olson radiata left frontal lobe. 2. No acute intracranial hemorrhage or midline shift. 3. No abnormal enhancement. ACT 112: Negative or not required by law. The above report was generated using voice recognition software. It may contain grammatical, syntax o r spelling errors. Electronically signed by: Bhupendra Mackay M.D. 04/02/2021 1:22 PM
[2021-04-02] MEDS ORDERED: carBAMazepine 200 MG TABLET PO SCH (14:00)
[2021-04-02] MEDS: CLOPIDOGREL BISULFATE 75 MG TAB PO SCH (14:56)
--- NOTE | 2021-04-02 15:44 | Consultation Report ---
NEUROLOGY CONSULTATION. DISTRIBUTION: None. CHIEF COMPLAINT: Right-sided weakness and facial droop. HISTORY OF PRESENT ILLNESS: A 60-year-old male with a history of epilepsy on carbamazepine and ethosuximide, admitted with right facial droop and subjective right sided weakness. Symptoms were noted this morning when he woke around 6:30 with right sided weakness. He went to bed last evening normal. His also noted that he had some slurred speech, which has since improved. He had no swallowing difficulties. He is able to ambulate, but feels weak and unstable on the right side. He has no prior history of stroke. There is a family history of stroke. He had no fevers, chills, or chest pain. Denies any headache, visual changes or shortness of breath. The patient was admitted from the Emergency Department due to concern for stroke. ALLERGIES: GRASS POLLEN, CAT DANDER, ERYTHROMYCIN. HOME MEDICATIONS: Carbamazepine 100 mg at night, carbamazepine 200 mg tablet 2 tablets 3 times daily, cetirizine 10 mg tablet in the morning, ethosuximide 250 mg q.i.d., Protonix and a multivitamin. PAST MEDICAL HISTORY: Epilepsy, gastroesophageal reflux disease. PAST SURGICAL HISTORY: Arthroscopic surgery of the shoulder. FAMILY HISTORY: Father had a stroke. SOCIAL HISTORY: He is a nonsmoker, drinks alcohol infrequently. He is prescribed medical marijuana and vapes occasionally. REVIEW OF SYSTEMS: Positive for right sided weakness, dysarthria, right facial droop, otherwise all other review of systems was negative except as noted above in the HPI. PHYSICAL EXAMINATION: VITAL SIGNS: Temperature 36.5 degrees Celsius, pulse is 76, respiratory rate 16, blood pressure 173/85, pulse is 94% on room air. GENERAL: The patient appears stated age, he appears normally developed, in no acute distress. HEENT: His head is normocephalic and atraumatic. Normal eyelids. Normal conjunctivae. NECK: Supple. RESPIRATORY: Normal respiratory effort. CARDIAC: Normal cardiac pulses. ABDOMEN: Nondistended. SKIN: No skin rash. NEUROLOGIC: Normal mood. He is awake, alert, oriented to person, place, and time. Knowledge is appropriate. Attention is normal. Comprehension is intact. No aphasia, no dysarthria. Eyes are midline. No visual defect on confrontation. Pupils are symmetric. Extraocular muscles intact. Facial sensation intact. Mild right facial droop. Intact hearing. Palate symmetric. Good shoulder shrug. Tongue is midline. Gait evaluation deferred. Mild ataxia with [id number] testing on ataxia. Sensation is intact to light touch, 5/5 throughout all muscle strength testing except right interosseous weakness.. Reflexes, negative Shmuel sign, no ankle clonus. DIAGNOSTIC TESTING AND LABORATORY VALUES: WBC 5.40, hemoglobin 13.6, platelet count 257. INR is 1.0. Sodium 135, potassium 4.2, chloride 106, BUN 16, creatinine 0.75, glucose 111. AST is 13, ALT is 25. Troponin is negative. COVID-19 is negative. Head and neck CTA: Unremarkable CTA of the head and neck. No high-grade stenosis or large vessel occlusion. Head CT noncontrast showed normal appearance of the brain parenchyma. No hemorrhage, mass effect or evidence of acute territorial ischemia. Howard white matter differentiation is preserved. ASSESSMENT AND PLAN: A 60-year-old male with history of epilepsy on carbamazepine and ethosuximide admitted with right hemiparesis, dysarthria and right facial droop concerning for possible transient ischemic attack versus lacunar infarct. I believe this patient had a lacunar stroke which is supported by right hand weakness, ataxia, and right facial droop (clumsy hand dysarthria). Recommend permissive hypertension treat for systolic blood pressure greater than 220, diastolic greater than 110 mmHg. Recommend starting aspirin 81 mg daily and Plavix 75 mg daily for 21 days and then deescalating to aspirin 81 mg daily. Recommend starting Lipitor 40 mg daily. MRI of the brain with and without contrast as well as transthoracic echocardiogram is ordered. We will obtain hemoglobin A1c as well as TSH. Telemetry while inpatient. PT, OT for any rehabilitation needs. Neurology will continue to follow. Job ID: [id number] [facility]
[2021-04-02] MEDS: PANTOprazole 40 MG TAB PO SCH (16:51)
[2021-04-02] MEDS: carBAMazepine 200 MG TABLET PO SCH ×2 (16:52→22:22)
[2021-04-02] MEDS: ETHOSUXIMIDE 250 MG PO SCH ×2 (16:53→22:21)
[2021-04-02] MEDS ORDERED: carBAMazepine 100 MG CHEW TAB PO SCH (21:00)
[2021-04-02] MEDS: carBAMazepine 100 MG CHEW TAB PO SCH (22:21)
[2021-04-03 06:09] LABS: Basophils # (auto) 0.01 K/uL (0-0.2); Basophils % (auto) 0.2 %; Eosinophils # (auto) 0.56 K/uL (0-0.5); Eosinophils % (auto) 8.6 %; Hematocrit (blood only) 42.5 % (42-52); Hemoglobin 14.7 g/dL (14.0-18.0); Immature Granulocytes # (auto) 0.02 K/uL (0.00-0.02); Immature Granulocytes % (auto) 0.3 %; Lymphocytes # (auto) 1.33 K/uL (1.2-3.4); Lymphocytes % (auto) 20.5 %; Mean Corpuscular Hemoglobin 29.9 pg (25-34); Mean Corpuscular Hgb Conc 34.6 g/dL (32-36); Mean Corpuscular Volume 86.4 fL (80-100); Mean Platelet Volume 9.4 fL (7.4-10.4); Monocytes # (auto) 0.62 K/uL (0.11-0.59); Monocytes % (auto) 9.6 %; Neutrophils # (auto) 3.95 K/uL (1.4-6.5); Neutrophils % (auto) 60.8 %; Platelet Count 282 K/uL (130-400); RDW Standard Deviation 41.7 fL (36.4-46.3); Red Blood Count 4.92 M/uL (4.7-6.1); White Blood Count 6.49 K/uL (4.8-10.8)
[2021-04-03] MEDS: carBAMazepine 200 MG TABLET PO SCH ×3 (06:25→22:58)
[2021-04-03] MEDS: ETHOSUXIMIDE 250 MG PO SCH ×3 (06:26→22:59)
[2021-04-03 06:59] LABS: BUN Creatinine Ratio 14.1 (10-20); Calcium 8.6 mg/dl (8.5-10.1); Creatinine Clr Calc Pharmacy 142.2 ml/min; Est GFR (African American) 115.9 ml/min; Potassium 3.8 mmol/L (3.5-5.1)
[2021-04-03 08:01] LABS: Estimated Average Glucose 100 mg/dl; Hemoglobin A1C 5.1 % (4.5-5.6)
[2021-04-03] MEDS: CETIRIZINE HCL 10 MG TABLET PO SCH (08:44)
[2021-04-03] MEDS: MULTIVITAMIN TAB PO SCH (08:44)
[2021-04-03] MEDS: ENOXAPARIN INJ 40 MG/0.4 ML SYR SQ SCH (08:45)
[2021-04-03] MEDS: CLOPIDOGREL BISULFATE 75 MG TAB PO SCH (08:45)
[2021-04-03] MEDS: ATORVASTATIN 40 MG TAB PO SCH (08:45)
[2021-04-03] MEDS: ASPIRIN 81 MG ECTAB PO SCH (08:45)
--- NOTE | 2021-04-03 15:36 | Neurology Progress Note ---
Date of Service April 03, 2021 Assessment & Plan (1) Ischemic stroke: Plan: 1. plavix 75 mg and aspirin 81 mg x 21 days then aspirin for life 2. after permissive HTN x 48 hours optimize slowly HTN, HLD, DM LDL <70 3. PT/OT speech for discharge needs 4. TTE- no ASD 5 out patient ZIO 6. follow up with neurology in 4-6 weeks Rosa Giles PAC schedule (2) Seizure disorder: Plan: 1. continue tegretol 400 mg 400 mg 500 mg daily 2. ethosuximide 250 mg daily 3. tegretol and ethoxsuximide level 4. no driving for 6 months from last seizure date, no heights, no bathing or swimming alone 5. seizure precautions Admission and Anticipated Discharge Date Admission Date: April 02, 2021 Supervising Physician Co-Signing Physician Notes I have seen and discussed above patient with Dr Rosa Eid, neurology Jm Phillips is a 60 year old male with PMH - seizure disorder who presents with strokelike symptoms 04/02/2021 to [facility]. He went to bed but woke up around 0630 with right-sided weakness,slowed speech that improved. Denies any swallowing issues. Able to ambulate but feels weak and unstable on right side. Denies any personal history of strokelike symptoms. + Family history of stroke with father. Review of Systems Review of Systems: All systems reviewed & are unremarkable except as noted in HPI & below Results & Data ([facility]) Vital Signs (Past 12 Hours) Vital Signs Temp Pulse Resp BP Pulse Ox 04/03/21 11:01 36.4 C L 84 18 176/82 H 96 04/03/21 07:31 36.6 C 68 18 175/90 H 94 04/03/21 04:00 36.5 C 67 16 170/89 H 97 Diagnostic Findings MRI brain- Small acute lacunar infarct of the olson radiata left frontal lobe. No acute intracranial hemorrhage or midline shift. No abnormal enhancement. CTA head and neck- Unremarkable CTA of the head and neck. TTE- EF 60-65% no ASD
[2021-04-03] MEDS: PANTOprazole 40 MG TAB PO SCH (16:52)
--- NOTE | 2021-04-03 17:58 | Progress Notes ---
DATE OF NOTE: 04/03/2021 SUBJECTIVE: I am seeing the patient in followup. The patient has a longstanding history of epilepsy , for which he is on Tegretol and ethosuximide. He had sudden onset of right hemiparesis and a right facial droop. His MRI of the brain showed a small lacunar infarction in the left olson radiata in the left frontal lobe. I have reviewed the report. CTA of the head and neck were unremarkable. His echo, moderate concentric LVH. No evidence of atrial septal defect or intraatrial shunt. There is aortic valve sclerosis without significant stenosis. The patient has been found to be markedly hyper tensive. His laboratory data is notable for mildly elevated nonfasting blood sugar of 111, total cho lesterol 255, LDL 151, HDL 82. OBJECTIVE: He is awake and alert. Very marginal dysarthria, mild flattening in the right nasolabial fold. No field cut. No facial anesthesia. Right upper extremity distally is 3 to 3+ more proximal ly somewhat stronger. There is a right drift and decreased rapid alternating movements. There is mi nimal weakness of the right lower extremity. No sensory loss to light touch and moderate dystaxia on right [id number]. IMPRESSION: Left olson radiata infarction. Dual antiplatelet therapy x21 days and aspirin. Agree with initiation of statin. Gradual reduction in blood pressure over time. Continue baseline doses o f anticonvulsants. The patient will need to see us in followup, at which time we will order a cardia c monitor. Job ID: [id number]
--- NOTE | 2021-04-03 22:12 | Hospitalist Progress Note ---
Date of Service April 03, 2021 Assessment & Plan (1) Acute CVA (cerebrovascular accident): (2) Stroke-like symptoms: Plan: Left olson radiata infarction Presented on admission with strokelike symptoms NO TPA giving due to unknown onset since pt woke up with the symptoms CT head on admission showed no hemorrhage, mass effect, or evidence of acute territorial ischemia CTA head/Neck showed unremarkable CTA of the head and neck. MRI brain showed Small acute lacunar infarct of the olson radiata left frontal lobe. No acute intracranial hemorrhage or midline shift. ECHO showed no LV wall motion abnormality. No evidence of atrial septal defect. Ejection fraction 60 to 65% Neuro on board Received aspirin 325 mg in the ER We will continue dual antiplatelet therapy with aspirin and Plavix for 21 days, then continue aspirin 81 mg daily. Cholesterol 255, LDL 151, HDL 82 Continue statin Continue PT/OT/ speech therapy PT recommends inpatient rehab (3) Seizure disorder: Plan: Remote h/o seizures, over 10 years ago Continue home carbamazepine, ethosuximide (4) GERD (gastroesophageal reflux disease): Plan: Continue protonix DVT Ppx: SQ Lovenox Code status: FULL Disposition Consider to discharge to inpatient rehab Admission and Anticipated Discharge Date Admission Date: April 02, 2021 Subjective Patient was seen and examined for follow-up of right upper extremity weakness and facial droop Lying in bed with no acute distress. Patient said that he feels okay He said his speech is back to normal but continued to have some weakness in his right upper extremity Denies any chest pain, palpitation, dizziness, shortness of breath. Physical Exam Physical Exam: General- No acute distress Head- atraumatic Eyes- PERRL, EOMI, ENT- oropharynx clear Neck- supple, no JVD Lungs- clear to auscultation Heart- regular rhythm; no murmur Abdomen- normal bowel sounds, soft, nontender Extremities- no calf tenderness Neuro- alert, oriented x 3; PERRL, EOMI; no facial palsy; no dysarthria, +facial droop present, decreased R upper extremity strength Skin- warm & dry Results & Data Results & Data ([facility]) Vital Signs (Past 12 Hours) Vital Signs Temp Pulse Pulse Resp BP Pulse Ox 04/03/21 19:57 36.6 C 78 18 166/82 H 94 04/03/21 16:04 36.3 C L 84 18 180/84 H 98 04/03/21 16:00 112 H 04/03/21 11:01 36.4 C L 84 18 176/82 H 96
[2021-04-03] MEDS: carBAMazepine 100 MG CHEW TAB PO SCH (22:58)
[2021-04-04 06:39] LABS: Basophils # (auto) 0.01 K/uL (0-0.2); Basophils % (auto) 0.1 %; Eosinophils # (auto) 0.44 K/uL (0-0.5); Eosinophils % (auto) 6.1 %; Hematocrit (blood only) 42.9 % (42-52); Hemoglobin 15.2 g/dL (14.0-18.0); Immature Granulocytes # (auto) 0.03 K/uL (0.00-0.02); Immature Granulocytes % (auto) 0.4 %; Lymphocytes # (auto) 1.23 K/uL (1.2-3.4); Lymphocytes % (auto) 17.1 %; Mean Corpuscular Hemoglobin 30.3 pg (25-34); Mean Corpuscular Hgb Conc 35.4 g/dL (32-36); Mean Corpuscular Volume 85.5 fL (80-100); Mean Platelet Volume 9.1 fL (7.4-10.4); Monocytes # (auto) 0.84 K/uL (0.11-0.59); Monocytes % (auto) 11.7 %; Neutrophils # (auto) 4.65 K/uL (1.4-6.5); Neutrophils % (auto) 64.6 %; Platelet Count 285 K/uL (130-400); RDW Coefficient of Variation 12.9 % (11.5-14.5); RDW Standard Deviation 40.5 fL (36.4-46.3); Red Blood Count 5.02 M/uL (4.7-6.1)
[2021-04-04 07:09] LABS: Calcium 8.6 mg/dl (8.5-10.1); Creatinine Clr Calc Pharmacy 134.8 ml/min; Est GFR (African American) 113.9 ml/min; Est GFR (Non-African American) 98.3 ml/min; Potassium 3.9 mmol/L (3.5-5.1)
[2021-04-04] MEDS: ETHOSUXIMIDE 250 MG PO SCH (07:57)
[2021-04-04] MEDS: carBAMazepine 200 MG TABLET PO SCH (07:58)
[2021-04-04] MEDS: CETIRIZINE HCL 10 MG TABLET PO SCH (07:58)
[2021-04-04] MEDS: CLOPIDOGREL BISULFATE 75 MG TAB PO SCH (07:59)
[2021-04-04] MEDS: ASPIRIN 81 MG ECTAB PO SCH (07:59)
[2021-04-04] MEDS: ENOXAPARIN INJ 40 MG/0.4 ML SYR SQ SCH (07:59)
[2021-04-04] MEDS: ATORVASTATIN 40 MG TAB PO SCH (07:59)
[2021-04-04] MEDS: MULTIVITAMIN TAB PO SCH (07:59)
--- NOTE | 2021-04-04 12:51 | Discharge Summary ---
Date of Service April 04, 2021 Admission HPI Per Admitting Provider This is a 60-year-old male with PMH of seizure disorder who presents with strokelike symptoms since morning. Patient was in normal state of health last evening when he went to bed but woke up around 0630 with right-sided weakness. also notes slowed speech that is since improved. Denies any swallowing issues. Able to ambulate but feels weak and unstable on right side. Denies any personal history of strokelike symptoms. + Family history of stroke with father. Denies any fever, chills, congestion. No lightheadedness, headache, visual changes, chest pain, shortness of breath. No nausea, vomiting or abdominal pain. No dysuria, diarrhea constipation. Admission Exam Per Admitting Provider General Appearance: WD/WN, vitals as above, NAD, sitting up in bed, pleasant, conversing easily Head: normocephalic, atraumatic Eyes: normal inspection, PERRL, conjunctivae normal, anicteric sclerae ENT: external ear and nose normal, oropharynx normal Neck: normal visual inspection, trachea midline, no thyromegaly Respiratory: normal respiratory effort, lungs clear to auscultation, no wheeze, rales, rhonchi. No accessory muscle use Cardiovascular: regular rate, rhythm, no murmur, normal peripheral pulses, no BLE edema. Vessels: no JVD Chest: normal inspection of chest Abdomen/GI: normal bowel sounds, soft, nontender, no hepatosplenomegaly Extremities/Musculoskeletal: no cyanosis or clubbing, extremities motor strength 5/5 Neurologic: PERRL, EOMI, accommodation nl, + slight R facial droop ,no dysarthria, CN's II-XI intact bilaterally and moves all extremities Psychiatric: A+Ox3, euthymic affect Skin: no rashes, normal color, warm/dry Principal Diagnosis (1) Acute CVA (cerebrovascular accident): (2) Stroke-like symptoms: (3) Seizure disorder Discharge Exam General- No acute distress Head- atraumatic Eyes- PERRL, EOMI, ENT- oropharynx clear Neck- supple, no JVD Lungs- clear to auscultation Heart- regular rhythm; no murmur Abdomen- normal bowel sounds, soft, nontender Extremities- no calf tenderness Neuro- alert, oriented x 3; PERRL, EOMI; no facial palsy; no dysarthria, +facial droop present, decreased R upper extremity strength Skin- warm & dry Discharge Data Allergies Allergy/AdvReac Type Severity Reaction Status Date / Time grass pollen-perennial rye, Allergy Unknown "SEASONAL Verified 04/02/21 09:23 standar ALLERGIES" cat dander AdvReac Unknown "PET Verified 04/02/21 09:23 DANDER" erythromycin base AdvReac Unknown DRUG Verified 04/02/21 09:23 INTERACTION Consultations 04/02/21 09:05 ED Decision to Admit Stat 04/02/21 11:29 Consult Neurology Routine Ordered Studies 04/02/21 08:13 CT angio head w con Stat CT angio neck with con Stat CT head/brain wo con Stat 04/02/21 11:10 MR brain wo/w con Routine MR brain wo/w con HISTORY: 60 years-old Male stroke eval acute strokelike symptoms COMPARISON: Head CT, CTA head and neck studies of same day TECHNIQUE: Multiple planar multisequence MRI of the brain was obtained both with and without the use of 11.0 mL Gadavist FINDINGS: There is an 11 mm focus of restricted diffusion involving the periventricular left frontal lobe on image 15 series 4 with decreased signal on ADC map. No acute hemorrhage, territorial infarct, midline shift, abnormal extra-axial fluid collection, hydrocephalus or intracranial mass. There is no pathologic blooming artifact. Bilateral mesial temporal lobes are symmetric and appear normal. Age- related involutional changes. Mild patchy white matter T2/FLAIR hyperintensities suggestive of chronic microvascular ischemic disease. No abnormal intra-axial or extra-axial enhancement. Cerebral venous sinuses and major arterial flow voids are patent. Mastoid air cells are clear. Mild polypoid mucosal thickening of the right maxillary sinus. Prior bilateral lens repair. The skull and soft tissues are within normal limits. IMPRESSION: 1. Small acute lacunar infarct of the olson radiata left frontal lobe. 2. No acute intracranial hemorrhage or midline shift. 3. No abnormal enhancement. ACT 112: Negative or not required by law. The above report was generated using voice recognition software. It may contain grammatical, syntax or spelling errors. Electronically signed by: Bhupendra Mackay M.D. 04/02/2021 1:22 PM Dictated: 04/02/21 1317Transcribed: 04/02/[address] angio head w con, CT angio neck with con CLINICAL HISTORY: 60 years-old Male with Stroke Like Symptoms. Acute strokelike symptoms COMPARISON STUDY: Head CT of same day TECHNIQUE: Following the IV administration of 117 cc of Optiray, CT angiogram of the head and neck was performed from the aortic arch to the skull vertex. Images are reviewed in the axial, sagittal, and coronal planes. 3-D MIPS images are created and assessed. IV contrast was administered without complication. All measurements were obtained according to NASCET criteria. A dose lowering technique was utilized adhering to the principles of ALARA. CT DOSE: 1284.54 mGycm FINDINGS: Three-vessel morphology of the thoracic aortic arch. Patency of the innominate and imaged subclavian arteries. The common carotid arteries are patent. Mild atherosclerotic plaque of the carotid bulbs without significant stenosis. C alcified plaque of the cavernous and supraclinoid segments. Mild multifocal luminal narrowing of the middle cerebral arteries. The anterior cerebral arteries are patent. Cerebral venous sinuses are patent. Patency of the vertebral arteries. Calcified plaque at the origin of the right vertebral artery results in mild luminal narrowing. The basilar and posterior cerebral arteries are widely patent. No aneurysm, dissection, high-grade stenosis or arterial occlusion. Lung apices are clear. No pneumothorax. Unremarkable soft tissues. Prior bilateral lens repair. Degenerative changes of the spine. Mild polypoid mucosal thickening of the right maxillary sinus. IMPRESSION: Unremarkable CTA of the head and neck. ACT 112: Negative or not required by law. The above report was generated using voice recognition software. It may contain grammatical, syntax or spelling errors. Electronically signed by: Bhupendra Mackay M.D. 04/02/2021 8:53 AM Dictated: 04/02/2133Transcribed: 04/02/[address] angio head w con, CT angio neck with con CLINICAL HISTORY: 60 years-old Male with Stroke Like Symptoms. Acute strokelike symptoms COMPARISON STUDY: Head CT of same day TECHNIQUE: Following the IV administration of 117 cc of Optiray, CT angiogram of the head and neck was performed from the aortic arch to the skull vertex. Images are reviewed in the axial, sagittal, and coronal planes. 3-D MIPS images are created and assessed. IV contrast was administered without complication. All measurements were obtained according to NASCET criteria. A dose lowering technique was utilized adhering to the principles of ALARA. CT DOSE: 1284.54 mGycm FINDINGS: Three-vessel morphology of the thoracic aortic arch. Patency of the innominate and imaged subclavian arteries. The common carotid arteries are patent. Mild atherosclerotic plaque of the carotid bulbs without significant stenosis. Calcified plaque of the cavernous and supraclinoid segments. Mild multifocal luminal narrowing of the middle cerebral arteries. The anterior cerebral arteries are patent. Cerebral venous sinuses are patent. Patency of the vertebral arteries. Calcified plaque at the origin of the right vertebral artery results in mild luminal narrowing. The basilar and posterior cerebral arteries are widely patent. No aneurysm, dissection, high-grade stenosis or arterial occlusion. Lung apices are clear. No pneumothorax. Unremarkable soft tissues. Prior bilateral lens repair. Degenerative changes of the spine. Mild polypoid mucosal thickening of the right maxillary sinus. IMPRESSION: Unremarkable CTA of the head and neck. ACT 112: Negative or not required by law. The above report was generated using voice recognition software. It may contain grammatical, syntax or spelling errors. Electronically signed by: Bhupendra Mackay M.D. 04/02/2021 8:53 AM Dictated: 04/02/21832Transcribed: 04/02/21832 CT SCAN OF THE BRAIN WITHOUT IV CONTRAST CLINICAL HISTORY: Strokelike symptoms. COMPARISON STUDY: No priors. TECHNIQUE: Unenhanced axial CT scan of the brain is performed from the vertex to the skull base. A dose lowering technique was utilized adhering to the principles of ALARA. CT DOSE: 729.78 mGycm FINDINGS: Brain parenchyma: The brain parenchyma is normal in appearance. There is no hemorrhage, mass effect, or evidence of acute territorial ischemia by CT criteria. Howard-white matter differentiation is preserved. No extra-axial fluid collection is seen. Ventricles, sulci, cisterns: Normal in configuration. Intracranial vasculature: There is atherosclerotic calcification of the cavernous carotid and vertebral arteries. Calvarium: Unremarkable. Sinuses and mastoids: The paranasal sinuses are clear. The mastoid air cells are well pneumatized. Orbits: The bony orbits are grossly intact. There are bilateral ocular lens implants. IMPRESSION: There is no hemorrhage, mass effect, or evidence of acute territorial ischemia by CT criteria. ACT 112: Negative or not required by law. Electronically signed by: Moises Castellon M.D. 04/02/2021 8:28 AM Dictated: 04/02/21825Transcribed: 04/02/21825 Hospital Course (1) Acute CVA (cerebrovascular accident): (2) Stroke-like symptoms: Left olson radiata infarction Presented on admission with strokelike symptoms NO TPA giving due to unknown onset since pt woke up with the symptoms CT head on admission showed no hemorrhage, mass effect, or evidence of acute territorial ischemia CTA head/Neck showed unremarkable CTA of the head and neck. MRI brain showed Small acute lacunar infarct of the olson radiata left frontal lobe. No acute intracranial hemorrhage or midline shift. ECHO showed no LV wall motion abnormality. No evidence of atrial septal defect. Ejection fraction 60 to 65% Neuro on board Received aspirin 325 mg in the ER We will continue dual antiplatelet therapy with aspirin and Plavix for 21 days, then continue aspirin 81 mg daily. Cholesterol 255, LDL 151, HDL 82 Continue statin Continue PT/OT/ speech therapy PT recommends inpatient rehab (3) Seizure disorder: Remote h/o seizures, over 10 years ago Continue home carbamazepine, ethosuximide (4) GERD (gastroesophageal reflux disease): Continue protonix DVT Ppx: SQ Lovenox Code status: FULL Disposition Consider to discharge to inpatient rehab Total Time Total Time Spent Total Time Spent (In Minutes): 35 minutes Discharge Plan Discharge Items Patient Disposition: Transfer Inpatient Rehab Fac Reason For Visit: STROKE LIKE SYMPTOMS Discharge Diagnosis: (1) Acute CVA (cerebrovascular accident): (2) Stroke-like symptoms: (3) Seizure disorder: Activity: Resume your previous activity Non-emergency contact: Primary Care Provider and Neurologist Call non-emergency contact if: you have any medication questions Follow-up/Referrals: PCP,NO [Primary Care Provider] - Diet: Heart Healthy Addtl Attending Provider Instructions: Follow up with your primary care provider once discharge from rehab Follow up with neurology in 4 to 6 weeks (Please call to schedule for the appointment) Continue physical and occupational therapy You will need to arrange for a Zio Patch heart monitor (your provider or neurology can order it) Continue dual antiplatelet therapy x21 days and aspirin; then after 21 days continue the asprin alone Fall and seizure precaution Pending Studies at Discharge: Yes Stand-Alone Forms: My [facility] Skilled Items Patient informed of condition?: Yes DNR: No Discharge Level of Care: Acute rehab Communicable Disease: No Discharge Prognosis: Stable Lines: None Urinary Catheter: No Medications and DC Order Prescriptions: New clopidogrel 75 mg Tablet 75 mg PO QAM Qty: 30 RF: 0 atorvastatin 40 mg Tablet 40 mg PO QAM Qty: 30 RF: 0 aspirin 81 mg Tablet,Delayed Release (Dr/Ec) 81 mg PO QAM Qty: 30 RF: 0 Continued multivitamin Tablet 1 tab PO QAM RF: 0 cetirizine 10 mg Tablet 10 mg PO QAM RF: 0 ethosuximide 250 mg capsule 250 mg PO UD RF: 0 carbamazepine 200 mg tablet 400 mg PO TID RF: 0 pantoprazole 40 mg tablet,delayed release (DR/EC) 40 mg PO DAILY@1700 RF: 0 carbamazepine 100 mg tablet,chewable 100 mg PO HS RF: 0 Discharge Orders: Discharge Order (Routine); Ordered 04/04/21 Ordered By: Christina Horn/Other Patient Handouts: Discharge Instructions for Stroke Admission Data Admit Date/Time: 04/02/21 10:11 Attending Provider: Christina Andrews Admit Provider: Christina Andrews Primary Care Provider: PCP,NO Other Providers: Christina Andrews ; Iván Fournier ; [facility] Other Interventions: Discharge Summary Assessment (RN) Last Done: 04/04/21 12:25
[2021-04-04] MEDS ORDERED: STROKE PATIENT DISCHARGE STA (13:30)
== END 2021-04-04 14:18 | DRG 65 ==
LOC: ED 07:59 → 2S 10:11
DX: I63.81 Other cerebral infarction due to occlusion or stenosis of small artery; G40.909 Epilepsy, unspecified, not intractable, without status epilepticus; Z79.899 Other long term (current) drug therapy; Z88.1 Allergy status to other antibiotic agents; K21.9 Gastro-esophageal reflux disease without esophagitis; Z91.09 Other allergy status, other than to drugs and biological substances; R47.81 Slurred speech; G81.91 Hemiplegia, unspecified affecting right dominant side; R29.810 Facial weakness; Z82.3 Family history of stroke